=== PATIENT | female | born 1980 | race American Indian/Alaskan Native ===

== ENCOUNTER 2021-06-18 17:20 | Emergency (ER) | payer BC ==
[2021-06-18] MEDS ORDERED: METOCLOPRAMIDE 10 MG TAB PO ONE (19:08)
[2021-06-18] MEDS ORDERED: diphenhydrAMINE 25 MG CAP PO ONE (19:08)
--- NOTE | 2021-06-18 19:09 | Emergency Department Report ---
ED General Adult HPI - General Chief complaint: Headache Stated complaint: HEADACHE 3 DAYS ACHING WEAK Time Seen by Provider: 06/18/21 18:52 Source: patient Mode of arrival: Ambulatory Limitations: No Limitations - History of Present Illness Initial comments: 41-year-old female with a past medical history of hypertension, presents to the ER today with complaints of headache and flulike symptoms. Patient states that for the past 3 days she has been having a diffuse headache which has been constant in nature. She states that last week she did have a cold, but currently she has no runny nose, nasal congestion or sore throat, just a headache with associated chills, generalized body aches and generalized weakness. She denies any cough, chest pain, wheezing or shortness of breath. She reports nausea but no vomiting. She denies any abdominal pain. She denies any neck pain, vision changes, slurred speech, focal weakness or any additional symptoms. She states that her son did come home sick with cold-like symptoms couple weeks ago. She states that she did take her son to get checked, had a negative strep, was diagnosed with a common cold but he never got a COVID-19 test. She states that since she has been sick she has not gotten a COVID-19 test. She also has not gotten any of the COVID-19 vaccine. Patient blood pressure noted to be elevated at triage, patient admits that she does have history of hypertension, she used to be on amlodipine but 2 years ago her primary care doctor took her off the amlodipine because she was told that her blood pressure was doing better. Complaint: 3 -: Gradual - Related Data Previous Rx's Medication Instructions Recorded Last Taken Type Amlodipine Besylate [Norvasc] 5 mg PO DAILY #30 tablet 06/18/21 Unknown Rx Metoclopramide [Reglan] 10 mg PO TID PRN #15 tab 06/18/21 Unknown Rx Allergies Allergy/AdvReac Type Severity Reaction Status Date / Time No Known Allergies Allergy Verified 06/18/21 17:25 ED Review of Systems ROS: Stated complaint: HEADACHE 3 DAYS ACHING WEAK Other details as noted in HPI Comment: All other systems reviewed and negative Constitutional: chills. denies: fever Eyes: denies: eye pain, eye discharge, vision change ENT: denies: ear pain, throat pain, dental pain, hearing loss, epistaxis, congestion Respiratory: denies: cough, shortness of breath, SOB with exertion, SOB at rest, wheezing Cardiovascular: denies: chest pain, palpitations Gastrointestinal: nausea. denies: abdominal pain, vomiting, diarrhea, constipation, hematemesis, melena, hematochezia Genitourinary: denies: urgency, dysuria, frequency, hematuria, discharge, abnormal menses, dyspareunia Musculoskeletal: myalgia. denies: arthralgia Skin: denies: rash, lesions, change in color, change in hair/nails, pruritus Neurological: headache, weakness. denies: numbness, paresthesias, confusion, abnormal gait, vertigo Psychiatric: denies: anxiety, depression, auditory hallucinations, visual hallucinations, homicidal thoughts, suicidal thoughts Hematological/Lymphatic: denies: easy bleeding, easy bruising, swollen glands ED Past Medical Hx - Medications Home Medications: Home Medications Medication Instructions Recorded Confirmed Last Taken Type Amlodipine Besylate [Norvasc] 5 mg PO DAILY #30 tablet 06/18/21 Unknown Rx Metoclopramide [Reglan] 10 mg PO TID PRN #15 tab 06/18/21 Unknown Rx ED Physical Exam - General Limitations: No Limitations General appearance: alert, in no apparent distress - Head Head exam: Present: atraumatic, normocephalic, normal inspection - Eye Eye exam: Present: normal appearance, PERRL, EOMI Pupils: Present: normal accommodation - ENT ENT exam: Present: normal exam, normal orophraynx, mucous membranes moist, TM's normal bilaterally - Neck Neck exam: Present: normal inspection, full ROM. Absent: meningismus - Respiratory Respiratory exam: Present: normal lung sounds bilaterally. Absent: respiratory distress, wheezes, rales, rhonchi - Cardiovascular Cardiovascular Exam: Present: regular rate, normal rhythm, normal heart sounds - GI/Abdominal GI/Abdominal exam: Present: soft. Absent: distended, tenderness, guarding, rebound - Back Exam Back exam: Present: normal inspection, full ROM - Neurological Exam Neurological exam: Present: alert, oriented X3, CN II-XII intact, normal gait - Psychiatric Psychiatric exam: Present: normal affect, normal mood - Skin Skin exam: Present: intact ED Course Vital Signs 06/18/21 06/18/21 17:25 21:39 Temperature 97.4 F L Pulse Rate 100 H 89 Respiratory 18 12 Rate Blood Pressure 197/102 Blood Pressure 160/103 [Right] O2 Sat by Pulse 100 100 Oximetry ED Medical Decision Making - Lab Data Result diagrams: 06/18/21 19:22 06/18/21 19:22 - Medical Decision Making Labs reviewed and unremarkable. Patient currently sitting in the chair, resting comfortably, she appears to be feeling better and is not in any acute distress. She is awake alert and oriented x3 with a GCS of 15. She is neurologically intact and has been observed ambulating in the ER with a normal gait. Her repeat blood pressure improved mildly, but still elevated. Discussed lab results with patient. Informed patient that I suspect that she could have a viral illness, but the headache could also be coming from her elevated blood pr essure. Her physical exam at this time does not suggest stroke, meningitis, intracranial bleed or any other intracranial abnormality, sepsis or any other emergent conditions warranting any additional testing, admission or specialist consult at this time.. I did recommend that she get an outpatient COVID-19 test, and she will be restarted on her Norvasc. She states that she has a follow-up appointment with a new PCP in the next couple weeks. I recommend that she follows up with her PCP to continue monitoring her blood pressure. Patient expressed understanding of all instructions and agree with plan. Patient stable at time of discharge. Critical care attestation.: If time is entered above; I have spent that time in minutes in the direct care of this critically ill patient, excluding procedure time. ED Disposition Clinical Impression: Uncontrolled hypertension, Headache, Viral illness Disposition: 01 HOME / SELF CARE / HOMELESS Is pt being admited?: No Does the pt Need Aspirin: No Condition: Stable Instructions: General Headache Without Cause, Preventing Hypertension, Viral Illness, Adult, Hypertension, Adult, Hypertension (ED) Additional Instructions: I recommend that you take the Reglan as prescribed to help with any headache and nausea, and I do recommend that when you do take the Reglan you can take Benadryl. You can take Tylenol and/or ibuprofen to help with your body aches. Take the Norvasc as prescribed to help with your blood pressure and I do recommend that you follow-up with the primary care doctor with whom he already have a scheduled appointment so that he can continue to keep an eye on your high blood pressure. I do recommend that she get an outpatient COVID-19 test as this could be also a cause of some of her symptoms. I do recommend that you quarantine until you get results of you COVID-19 test. Return to the ER if your symptoms changes or worsens in any way. Prescriptions: Amlodipine Besylate [Norvasc] 5 mg PO DAILY #30 tablet Metoclopramide [Reglan] 10 mg PO TID PRN #15 tab PRN Reason: Headache Referrals: PRIMARY CARE,MD [Primary Care Provider] - 3-5 Days Forms: Work/School Release Form(ED) Time of Disposition: 21:58
[2021-06-18 19:56] LABS: Basophils % (Auto) 0.5 % (0.0-1.8); Eosinophils % (Auto) 0.5 % (0.0-4.3); Hematocrit 35.4 % (30.3-42.9); Hemoglobin 12.2 gm/dl (10.1-14.3); Lymphocytes # (Auto) 2.7 K/mm3 (1.2-5.4); Lymphocytes % (Auto) 29.4 % (13.4-35.0); Mean Corpuscular HGB Conc 35 % (30-34); Mean Corpuscular Volume 84 fl (79-97); Monocytes # (Auto) 0.5 K/mm3 (0.0-0.8); Monocytes % (Auto) 5.7 % (0.0-7.3); Platelet Count 322 K/mm3 (140-440); Red Blood Count 4.19 M/mm3 (3.65-5.03); Red Cell Distribution Width 13.8 % (13.2-15.2)
[2021-06-18 19:58] LABS: Alanine Aminotransferase 10 units/L (7-56); Albumin 4.5 g/dL (3.9-5); Blood Urea Nitrogen 10 mg/dL (7-17); Calcium 9.5 mg/dL (8.4-10.2); Hemolysis Index 12
[2021-06-18 19:59] LABS: BUN/Creatinine Ratio 14
[2021-06-18 21:41] VITALS: BP 160/103
== END 2021-06-18 22:05 | disposition home or self-care (01) ==
LOC: ED 17:20
DX: B34.9 Viral infection, unspecified (principal); I10 Essential (primary) hypertension; R51.9 Headache, unspecified
CPT/HCPCS: 36415; 80053; 85025; 99283